=== PATIENT | female | born 1990 | race Caucasian/White ===

== ENCOUNTER 2017-11-28 17:04 | Emergency (ER) | payer OTHER ==
[~2017-11-28] VITALS: Ht 162.6 cm; Wt 90.7 kg
[~2017-11-28 17:04] MED LIST: DIFLUCAN150 MG PO; MACROBID 100 M100 M1 PO; NOHOMEMEDICATIONS
[2017-11-28] MEDS ORDERED: ADDERALL 30 MG30 MG PO (17:24)
[2017-11-28] MEDS ORDERED: IBUPROFEN 200200 M1 PO (17:25)
[2017-11-28] MEDS ORDERED: HYDROCODONE-AP1 EAC6 PO (18:53)
[2017-11-28 19:01] VITALS: BP 138/91
== END 2017-11-28 19:02 | disposition home or self-care (01) ==
LOC: M.ERS 17:04
DX: M54.2 Cervicalgia (principal); M54.9 Dorsalgia, unspecified; R07.81 Pleurodynia; Z90.49 Acquired absence of other specified parts of digestive tract; W17.89XA Other fall from one level to another, initial encounter; Y93.89 Activity, other specified; Y92.89 Other specified places as the place of occurrence of the external cause; Y99.8 Other external cause status